=== PATIENT | female | born 1975 | race Caucasian/White ===

== ENCOUNTER 2022-08-26 22:50 | Outpatient (REF) | payer OTHER, SELFPAY ==
[2022-08-26 23:54] LABS: Aspartate Amino Transferase* 29 U/L (12-35)
[2022-08-26 23:55] LABS: Hematocrit 34.5 % (33.0-51.0); Hemoglobin* 11.7 gm/dL (12.0-16.0); Lymphocytes Percent Auto 25.9 % (20-44); Mean Corpuscular HGB Conc 34 gm/dL (32-36); Mean Corpuscular Hemoglobin 32 pg (26-34); Mean Corpuscular Volume 95 fL (80-100); Neutrophils Percent Auto 55.2 % (42.0-72.0); Platelet Count* 167 K/uL (140-440); Red Blood Count 3.63 m/uL (4.00-5.20); White Blood Count* 2.43 K/uL (4.50-11.00)
[2022-08-26 23:56] LABS: Basophils Percent Auto 0.8 % (0.0-3.0); Eosinophils Percent Auto 3.7 % (0.0-7.0); Immature Granulocytes Pct Auto 0.4 %; Slide Review Reflex No
== END 2022-08-26 22:51 | disposition home or self-care (01) ==
LOC: LAB 22:50
PROVIDERS: Visit Provider Internal Medicine Rheumatology
DX: M32.10 Systemic lupus erythematosus, organ or system involvement unspecified (principal)
CPT/HCPCS: 36415; 84450; 85025